=== PATIENT | male | born 1965 | race American Indian/Alaskan Native ===

== ENCOUNTER 2017-07-21 10:48 | Outpatient (CLI) | payer OTHER ==
--- NOTE | 2017-07-22 08:25 | Ultrasound Report ---
ABDOMINAL ULTRASOUND: 07/21/17 10:48:00 CLINICAL: Epigastric pain and functional dyspepsia. FINDINGS: High-resolution ultrasound demonstrates a mildly enlarged and diffusely echogenic liver. Shadowing from ribs and bowel gas limit the exam for excluding liver mass. Normal hepatic vasculature and inferior vena cava. Normal gallbladder and bile ducts. The gallbladder wall measures 2.0 mm. The common bile duct measures 2.0 mm diameter. The pancreas is not well imaged due to bowel gas and body habitus. Normal abdominal aorta measuring 1.8 cm maximum. A normal spleen measures 11.7 cm. Normal kidneys with normal echogenicity and normal non-dilated renal collecting systems and ureters. The right kidney measures 11.0 x 5.1 x 5.7 cm. The left kidney measures 11.8 x 6.7 x 5.1 cm. No renal mass or calculus. No ascites or mass. IMPRESSION: 1. Hepatic steatosis and mild hepatomegaly. 2. No cholelithiasis. 3. Limited imaging of the pancreas.
== END 2017-07-21 10:49 | disposition home or self-care (01) ==
LOC: SPVWC 10:48
PROVIDERS: ATTEND Internal Medicine Gastroenterology
DX: K76.0 Fatty (change of) liver, not elsewhere classified (principal); R16.0 Hepatomegaly, not elsewhere classified
CPT/HCPCS: 76700